=== PATIENT | male | born 1965 | race Caucasian/White ===

== ENCOUNTER 2024-05-11 06:30 | Day surgery (SDC) | payer MEDICAID ==
[2024-05-11] MEDS: Lactated Ringers 1,000 ML IV SCH (07:03)
[2024-05-11] MEDS ORDERED: fentaNYL 100 MCG/2 ML SDV ONE (07:16)
[2024-05-11] MEDS ORDERED: Propofol 200 MG/20 ML SDV ONE ×2 (07:16→07:36)
== END 2024-05-11 09:05 | disposition home or self-care (01) ==
LOC: JP.SDS 06:30
PROVIDERS: ATTEND Surgery
DX: Z12.11 Encounter for screening for malignant neoplasm of colon (principal); J44.9 Chronic obstructive pulmonary disease, unspecified; I10 Essential (primary) hypertension
CPT/HCPCS: 00812-QZ; J2704; J3010; J7120

== ENCOUNTER 2024-07-23 09:14 | Emergency (ER) | payer MEDICAID ==
[2024-07-23] MEDS: Aspirin 81 MG Tab.Chew PO ONE (09:42)
[2024-07-23 09:50] LABS: BASOPHILS ABSOLUTE AUTO 0.05 K/uL (0.00-0.10); BASOPHILS PERCENT AUTO 0.4 % (0.1-1.3); EOSINOPHILS ABSOLUTE AUTO 0.12 K/uL (0.00-0.40); EOSINOPHILS PERCENT AUTO 1.1 % (0.0-5.4); HEMATOCRIT 44.3 % (38.4-49.7); IMMATURE GRAN ABSOLUTE AUTO 0.04 K/uL (0.00-0.23); IMMATURE GRAN PERCENT AUTO 0.4 % (0.0-0.7); LYMPHOCYTES ABSOLUTE AUTO 1.84 K/uL (0.8-3.3); LYMPHOCYTES PERCENT AUTO 16.2 % (11.4-47.7); MEAN CORPUSCULAR HEMOGLOBIN 30.4 pg (31.6-35.5); MEAN CORPUSCULAR HGB CONC 33.9 g/dL (31.6-35.5); MEAN CORPUSCULAR VOLUME 89.7 fL (81.4-99.0); MONOCYTES ABSOLUTE AUTO 0.79 K/uL (0.20-0.90); MONOCYTES PERCENT AUTO 6.9 % (3.3-12.6); NEUTROPHILS ABSOLUTE AUTO 8.53 K/uL (1.0-7.6); RED BLOOD CELL COUNT 4.94 M/uL (4.14-5.76); WHITE BLOOD CELL COUNT,WBC 11.4 K/uL (3.2-11.0)
[2024-07-23] MEDS: Ketorolac 30 MG/ML SDV IM ONE (09:57)
[2024-07-23 10:09] LABS: ALBUMIN 3.9 g/dL (3.4-5.0); ASPARTATE AMNIOTRANSFERASE,AST 11 U/L (15-37); CALCIUM 9.3 mg/dL (8.5-10.1); EST CRCL DRUG DOSING (CG) 109.13 mL/min; ESTIMATED GFR 102 mL/min (>60); GLUCOSE RANDOM 96 mg/dL (74-106); POTASSIUM,K 3.7 mmol/L (3.6-5.2); SODIUM,NA 138 mmol/L (140-148)
[2024-07-23 10:14] LABS: PLATELET COUNT,PLT 210 K/uL (130-375)
[2024-07-23 10:26] LABS: A/G RATIO 1.1 (1.2-2.2); ALANINE AMINOTRANSFERASE,ALT 18 U/L (12-78); ALKALINE PHOSPHATASE 58 U/L (46-116); BILIRUBIN TOTAL 0.5 mg/dL (0.2-1.0); BLOOD UREA NITROGEN,BUN 11 mg/dL (7-18); CARBON DIOXIDE,CO2 29 mmol/L (21-32); CHLORIDE,CL 101 mmol/L (100-108); CREATININE 0.8 mg/dL (0.8-1.3); PROTEIN TOTAL,TP 7.4 g/dL (6.4-8.2)
[2024-07-23 10:27] LABS: ANION GAP 11.7 mmol/L (5.0-14.0)
[2024-07-23] MEDS: Sodium Chloride 0.9% 10 ML Syringe FLUSH ONE (11:06)
[2024-07-23] MEDS: Iopamidol 755 Mg/ML 100 ML Bottle IV SCH ×2 (11:06→12:02)
[2024-07-23] MEDS: Sodium Chloride 0.9% 100 ML IV SCH ×2 (11:06→12:02)
== END 2024-07-23 12:56 | disposition home or self-care (01) ==
LOC: JP.ED 09:14
DX: R09.1 Pleurisy (principal); I10 Essential (primary) hypertension; E78.00 Pure hypercholesterolemia, unspecified; J44.9 Chronic obstructive pulmonary disease, unspecified; I25.2 Old myocardial infarction; Z79.899 Other long term (current) drug therapy; Z79.82 Long term (current) use of aspirin
CPT/HCPCS: 36415; 71045; 71275; 80053; 84484; 85025; 85379; 93005; 96372; 99285; A9270; J1885; Q9967; 93010; 99284